=== PATIENT | female | born 1940 | race Two or more races ===

== ENCOUNTER → 2018-03-12 | Outpatient (CLI) | payer MEDICARE, OTHER ==
--- NOTE | 2018-03-12 18:04 | CONS ---
Date/Time of Note Date/Time of Note DATE: 03/12/18 TIME: 17:54 Assessment/Plan Assessment/Plan Hospital Course This is a 77-year-old female with end-stage osteoarthritis of the left knee. She has failed conservative management with gait aids as well as injections. She does have history of diabetes. Per the patient daughter is well controlled. Patient had recent labs done at the PCPs office which may have contained a HgbA1c. If her HgbA1c <7.0 she would be a good surgical candidate for left total knee arthroplasty. My other concern is that she is only here for short period of time and goes back and forth between here and [place]. If the surgery was to be booked I would like to have her here for ideally 12 weeks before her returning to [facility]. The patient is to fax us her recent laboratory work. If they do not include HgbA1c one will be ordered for her. If her labs are good she will be booked for surgery and she will obtain preoperative and cardiac clearance. Consultation Date/Type/Reason Admit Date/Time Date of Consultation: Mar 12, 2018 Reason for Consultation Left knee pain Hx of Present Illness Is a 77-year-old female with a chief complaint of left knee pain. She lives [place] and part[place] 2 months ago she had a right total knee arthroplasty done in [place]. She has no issues and is doing well from that. The pain began years ago. The patients pain is in the medial and lateral aspect of the left knee. Pain is not radiating to the lower leg. The pain is rated as a 8/10. Patient denies complaints of numbness or tingling. The pain is exacerbated by climbing stairs and ambulation. The patient has had a steroid injection as well as PRP. These have not helped. The last injection was greater than 6 months ago. She uses a cane on a daily basis. Patient is on aspirin for previous heart surgery. The patient did have some increased swelling recently in the right lower extremity. Her primary care doctor [place] ordered a venous Doppler. Per the patient and daughter it was negative for DVT. Duration: Years Injury: No Walking tolerance: 1 block Limp: Yes Support: Cane and/or walker Swelling: Yes Crepitation: Yes Instability: No Stairs: 1 step at a time Physical Therapy: Not recently Injections: PRP injection approximately 6 months ago NSAIDs: No Prior surgery: No Back pain: No Hip pain: No Risk of AVN : No Patient denies fever, chills, shortness of breath, chest pain, nausea/vomiting, constipation, diarrhea, numbness, and tingling. Past Medical History Diabetescontrolled with oral medication coronary artery disease Hypertension Asthma Ovarian cancer Past Surgical History Open heart surgery Right total knee [id number] in [place]. Karen prosthesis Cataract surgery Hysterectomy Family History Significant Family History: no pertinent family hx Social History Alcohol Use: none Smoking Status: Never smoker Drug Use: none Exam/Review of Systems Vital Signs Vitals Weight: 175 pounds Height: 5 feet 4 inches BMI: 30.0 Temperature: 98.6 Heart Rate: 61 Blood Pressure: 124/60 Respiratory Rate: 12 Exam General: Alert, oriented x3. No Acute Distress. Heart: Regular rate and rhythm. Lungs: No respiratory distress. No accessory muscle use. Musculoskeletal: Left Knee This is a well developed female who is alert, oriented times three and in no apparent distress. Skin is intact over the left knee as well as the lower extremity with no abrasions, lacerations, or ulcerations. Observation of the patient's gait reveals an antalgic gait with Varus thrust. Frontal plane alignment is varus. There is pain on palpation of medial and lateral joint line. The patient demonstrates grinding anteriorly with ROM. Range of motion: 0 extension to approximately 130 degrees of flexion. Collateral ligament testing reveals no instability with varus or valgus stress at 0 and 30 degrees of flexion. Negative Betty's and negative posterior drawer. Neurovascularly intact with 5/5 EHL/tibialis anterior/gastroc. Sensation intact to light touch in a sural, saphenous, deep peroneal, superficial peroneal, medial and lateral plantar nerve distribution. Palpable, symmetric dorsalis pedis and posterior tibial pulses in both lower extremities. Hip examination normal. Imaging Imaging The patient received a standard set of films today that were personally reviewed. Imaging included a standing bilateral knee AP, PA flexion, merchant views and a dedicated lateral of the affected knee: There is varus alignment of the knee. There is complete loss of joint space in the medial compartment with moderate loss of joint space patellofemoral and lateral compartment(s). There is osteophyte formation. There is subchondral sclerosis. There are subchondral cysts. Degenerative changes are most severe in the medial compartment(s) WILLIS MCKEON MD Mar 12, 2018 18:04
--- NOTE | 2018-03-13 07:15 | RADRPT ---
PROCEDURE: Bilateral knee series CLINICAL INDICATION: Pain TECHNIQUE: AP weightbearing, PA weightbearing, lateral weightbearing and sunrise views were obtaine d of the right left knees. COMPARISON: None FINDINGS: There is a total right knee prosthesis in place without dislocation or loosening. Severe degenerate j oint disease of the left knee worse involving the medial compartment. No acute fractures or dislocati ons. The bones are osteopenic without focal bony blastic or lytic lesions. No evidence of right or le ft knee joint effusions. IMPRESSION: 1. No acute fractures or dislocations. 2. Unremarkable right knee prosthesis. 3. Severe degenerate joint disease of the left knee. 4. No evidence of right or left knee joint effusions. RPTAT:AAJJ Physician Marii Date Time Electronically viewed and signed by Physician Marii on 03/13/2018 07:15 BM/
== END | disposition home or self-care (01) ==
LOC: HKI 14:44
PROVIDERS: ATTEND Orthopaedic Surgery Adult Reconstructive Orthopaedic Surgery
DX: M17.12 Unilateral primary osteoarthritis, left knee (principal); Z96.651 Presence of right artificial knee joint
CPT/HCPCS: 73564; G0463

== ENCOUNTER → 2018-04-09 | Outpatient (CLI) | payer MEDICARE, OTHER ==
--- NOTE | 2018-04-09 10:01 | PN ---
Date/Time of Note Date/Time of Note DATE: 04/09/18 TIME: 09:54 Assessment/Plan VTE Prophylaxis Pharmacological prophylaxis: other Assessment/Plan Assessment/Plan 77-year-old female with advanced osteoarthritis of her left knee. 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 She has failed conservative treatment and would like to proceed with left total knee replacem ent. Risks and benefits were discussed. Implant materials and surgical techniques were discussed. The patient will be scheduled for surgery as soon as possible Subjective 24 Hr Interval Summary Free Text/Dictation Julianna is a 77-year-old lady who is here for evaluation of left knee pain. The pain has been ongoing for a few years. The patient has tried medications, injections and physical therapy without relief. She had her right knee replaced last year and is recovering from that. Patient is interested in the left knee replacement as soon as possible. The left knee pain is interfering with her routine activities and with sleep. She is having to use a cane for support. There is cracking and popping of the left knee. No trauma is reported. There is no history of fever or chills. She is here for further management Additional Comments Past history is significant for hypertension, diabetes, coronary artery bypass, hyperlipidemia Medications include metoprolol, metformin, aspirin, losartan, atorvastatin, amlodipine, diclofenac, triamterene, isosorbide, Imdur, nitroglycerin as needed Allergies none Review of systems is negative for chest pain or shortness of breath, positive for left knee pain, deformity and stiffness Exam/Review of Systems Exam Vitals Vital signs are stable, blood pressure 149/72, temperature 98.4, pulse rate 69 and respiration 14 Exam Examination of the left knee shows a varus deformity of 10 degrees, range of motion from 10-105 with crepitus. There is no instability and no neurovascular deficit. The right knee has a healed incision of knee replacement. Mild swelling of the right side is noted. The calf is soft and nontender. X-rays of the knees were reviewed and show a right total knee replacement with an un-resurfaced patella. The left knee has advanced osteoarthritis with complete loss of medial joint space and osteophyte formation as well as varus deformity PATRICE FROST Apr 09, 2018 10:01
== END | disposition home or self-care (01) ==
LOC: HKI 09:20
PROVIDERS: ATTEND Orthopaedic Surgery
DX: M17.12 Unilateral primary osteoarthritis, left knee (principal); I10 Essential (primary) hypertension; E11.8 Type 2 diabetes mellitus with unspecified complications; E78.5 Hyperlipidemia, unspecified; Z95.1 Presence of aortocoronary bypass graft; Z79.82 Long term (current) use of aspirin; Z79.84 Long term (current) use of oral hypoglycemic drugs
CPT/HCPCS: G0463

== ENCOUNTER 2018-04-19 09:00 | Inpatient (IN) | payer MEDICARE, OTHER ==
[~2018-04-19] VITALS: Ht 154.9 cm; Wt 78.8 kg
[2018-08-06 18:41] VITALS: BMI 30.3
[2018-08-16] VITALS (26 sets, daily range): BP systolic 120–174; BP diastolic 57–80; PULSE 57–75; RESP 16–24; Ht 154.9 cm; Wt 78.8 kg
[2018-08-16] MEDS ORDERED: CEFAZOLIN 2 GM/50 ML (PMX) 50 ML (FOR WT < 120 KG) IVPB ONE (06:00)
[2018-08-16] MEDS ORDERED: ACETAMINOPHEN 500 MG TAB PO ONE (06:00)
[2018-08-16] MEDS ORDERED: DEXAMETHASONE 4 MG/ML 1 ML INJ IV ONE (06:00)
[2018-08-16] MEDS ORDERED: TRANEXAMIC ACID 1GM/100ML(PMX) 100 ML AT INCISION X1 IVPB ONE (06:00)
[2018-08-16] MEDS ORDERED: ACETAMINOPHEN 1000MG/100ML IV 100 ML IVPB ONE (06:30)
[2018-08-16] MEDS ORDERED: POLYMYXIN B 500000 UNIT INJ ONE (06:50)
[2018-08-16] MEDS ORDERED: BACITRACIN 50000 UNITS INJ ONE (06:51)
[2018-08-16] MEDS: LACTATED RINGER'S 1,000 ML IV SCH ×3 (07:13→22:07)
--- NOTE | 2018-08-16 07:16 | PREAC ---
Date/Time of Note Date/Time of Note DATE: 08/16/18 TIME: 07:13 Anesthesia Eval and Record Evaluation Time Pre-Procedure Interview DATE: 08/16/18 TIME: 07:13 Age 78 Sex female NPO: 8 hrs Preoperative diagnosis left knee osteoarthritis Planned procedure left total knee replacement Past Medical History Past Medical History: Includes Cardio: HTN, Dyslipidemia, CAD, CABG Endo: Diabetes Musculoskeletal: Osteoarthritis Surgery & Anesthesia Issues No known issue Meds Anticoagulation: No Beta David within 24 hr: No Reason Beta David not given: Pt. not on B-David Current Medications Lactated Ringer's 1,000 ml @ 25 mls/hr Q24H IV ; Start 08/16/18 at 06:00 Tranexamic Acid 100 ml @ 330 mls/hr INTRAOP ONCE IVPB ; Start 08/16/18 at 10: 00; Stop 08/16/18 at 10:18 Meds reviewed: Yes Allergies Coded Allergies: No Known Allergy (Unverified , 08/06/18) Allergies Reviewed: Yes Labs/Studies Labs Reviewed: Reviewed by anesthesiologist test: N/A Pre-procedure Exam Airway: Adequate mouth opening, Adequate thyromental dist Mallampati: Mallampati II Teeth: Normal Lung: Normal Heart: Normal ASA Physical Status ASA physical status: 3 Emergency: None Planned Anesthetic General/MAC: Mask (vs. ), LMA Neuraxial: Spinal Nerve block: Femoral (left adductor) Planned Pain Management Single shot nerve block, Parenteral pain med Pre-operative Attestations Prior to commencing anesthesia and surgery, the patient was re-evaluated, there was verification of: *The patient's identity *The results of appropriate recent lab work and preoperative vital signs *The above evaluation not changing prior to induction *Anesthetic plan, risk benefits, alternative and complications discussed with patient/family; questions answered; patient/family understands, accepts and wishes to proceed. Costume Cutter used KRISTIE DAWKINS MD Aug 16, 2018 07:16
--- NOTE | 2018-08-16 07:33 | HPN ---
Date/Time of Note Date/Time of Note DATE: 08/16/18 TIME: 07:33 Interval H&P Admission Note Pt. seen H&P reviewed: No system changes PATRICE FROST Aug 16, 2018 07:33
[2018-08-16] MEDS ORDERED: MIDAZOLAM 1 MG/ML 2 ML INJ ONE (07:44)
[2018-08-16] MEDS ORDERED: FENTAnyl 50 MCG/ML VIAL ONE (07:44)
[2018-08-16] MEDS ORDERED: LOSA50TA14 PO (07:46)
[2018-08-16] MEDS ORDERED: METO-319 PO (07:46)
[2018-08-16] MEDS ORDERED: METF500T24 PO (07:46)
[2018-08-16] MEDS ORDERED: ATOR40TA68 PO (07:46)
[2018-08-16] MEDS ORDERED: AMLO-145 PO (07:46)
[2018-08-16] MEDS ORDERED: CEFAZOLIN 1 GM INJ ONE (08:57)
[2018-08-16] MEDS ORDERED: TRANEXAMIC ACID 1GM/100ML(PMX) 100 ML ONE ×2 (08:57→09:08)
[2018-08-16] MEDS ORDERED: FENTAnyl 50 MCG/ML VIAL IV PRN (09:00)
[2018-08-16] MEDS ORDERED: hydrALAzine 20 MG INJ IV PRN (09:00)
[2018-08-16] MEDS ORDERED: PROCHLORPERAZINE 10 MG INJ IV PRN (09:00)
[2018-08-16] MEDS ORDERED: MEPERIDINE 25 MG INJ IV PRN (09:00)
[2018-08-16] MEDS ORDERED: DIPHENHYDRAMINE 50 MG INJ IV PRN (09:00)
[2018-08-16] MEDS ORDERED: ONDANSETRON 4 MG INJ IV PRN (09:00)
[2018-08-16] MEDS ORDERED: EPHEDrine 25 MG/5 ML SYG IV PRN (09:00)
[2018-08-16] MEDS ORDERED: HYDROmorphONE 1 MG/5 ML IV SYRINGE IV PRN ×2 (09:00)
[2018-08-16] MEDS ORDERED: ROPIVACAINE 0.2% 20 ML VIAL ONE (09:02)
[2018-08-16] MEDS ORDERED: ONDANSETRON 4 MG INJ ONE (09:02)
[2018-08-16] MEDS ORDERED: FAMOTIDINE 20 MG INJ ONE (09:02)
[2018-08-16] MEDS ORDERED: PROPOFOL 100 ML ONE (09:02)
--- NOTE | 2018-08-16 09:34 | SIPON ---
Date/Time of Note Date/Time of Note DATE: 08/16/18 TIME: 09:33 Operative Report Preoperative Diagnosis Left knee osteoarthritis Postoperative Diagnosis Same Operation/Procedure Performed Left total knee replacement Surgeon see signature line psychiatric assistant MOJGAN Back Anesthesia: spinal Estimated blood loss: 150 - 200 ml's Transfusion Required none Specimen Bone Grafts/Implants Attune knee, size 5 femur, size 5 tibia, 10 mm polyethylene and 35 patella Complications none PATRICE FROST Aug 16, 2018 09:34
--- NOTE | 2018-08-16 09:37 | OPR ---
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 The left knee was examined and found to have a varus deformity of 15 degrees. The knee was prepped and draped in usual manner. An anterior incision was made. A mid vastus approach was made in the patella displaced laterally without everting it. The knee had advanced osteoarthritis with severe loss of cartilage as well as large osteophytes. Using intramedullary alignment, the distal femoral cut was made in 5 degrees of valgus. The femur was measured to be a size 5 from the Picket knee system. The 5 cutting block was placed. Anterior posterior and chamfer cuts were made. A notch was cut in the distal femur to accommodate the posterior stabilized femoral component. The PCL was sacrificed, remnants of the menisci were removed. The tibia was cut using external alignment and the patella cut using a freehand technique. Trials were inserted including a 5 fem ur, 5 tibia, 35 patella and 10 mm of polyethylene. This resulted in a stable knee from 0 to 120 degrees with good balance and tracking. X-rays confirm proper alignment of the implants. Once satisfactory alignment was confirmed, final components were cemented in place. Excess cement was removed. The knee was injected with pain cocktail. Hemostasis was confirmed with aqua Mantis. The knee was closed in layers using #1 strata fix for deep fascia 2-0 Vicryl for subcutaneous tissue and 3-0 Monocryl for the skin. Patient was transferred to the recovery room in stable condition PATRICE FROST Aug 16, 2018 09:37
[2018-08-16] MEDS ORDERED: NALOXONE (0.4 MG/ML) INJ IV PRN (10:00)
[2018-08-16] MEDS ORDERED: MAGNESIUM HYDROXIDE 30ML CUP PO PRN (10:00)
[2018-08-16] MEDS ORDERED: NACL 0.9% 3 ML SYG IV SCH (10:00)
[2018-08-16] MEDS ORDERED: oxyCODONE 5 MG TAB PO PRN (10:00)
[2018-08-16] MEDS ORDERED: TRANEXAMIC ACID 1GM/100ML(PMX) 100 ML AT CLOSURE X1 IVPB ONE (10:00)
--- NOTE | 2018-08-16 10:17 | PAC ---
Date/Time of Note Date/Time of Note DATE: 08/16/18 TIME: 10:16 Post-Anesthesia Notes Post-Anesthesia Note Last documented vital signs Vital Signs Date Temp Pulse Resp B/P (MAP) Pulse Ox O2 O2 Flow FiO2 Time Delivery Rate 08/16/18 66 19 138/66 95 Mask 6.0 10:15 (90) 08/16/18 97.9 10:14 Activity: WNL Respiratory function: WNL Cardiovascular function: WNL Mental status: Baseline Pain reasonably controlled: Yes Hydration appropriate: Yes Nausea/Vomiting absent: Yes Comments BP: 140/58 HR: 69 RR: 15 T: 97.9 SaO2: 100% KRISTIE DAWKINS MD Aug 16, 2018 10:17
[2018-08-16] MEDS: CEFAZOLIN 2 GM/50 ML (PMX) 50 ML IVPB SCH ×2 (10:36→17:47)
[2018-08-16] MEDS: KETOROLAC 15 MG INJ IV PRN ×3 (12:11→13:16)
--- NOTE | 2018-08-16 12:32 | HP ---
Date/Time of Note Date/Time of Note DATE: 08/16/18 TIME: 12:20 Assessment/Plan VTE Prophylaxis SCD applied (from Nsg): Yes Pharmacological prophylaxis: other Lines/Catheters IV Catheter Type (from Nrsg): Saline Lock Assessment/Plan Assessment/Plan -Left knee osteoarthritis, status post left total knee replacement by Dr. Hernandez. Continue postoperative antibiotic. Continue oral oxycodone and Toradol as needed for pain and Zofran as needed for nausea. Continue aspirin twice daily. Follow-up orthopedic surgery recommendations. Physical therapy. -Coronary artery disease, status post CABG -Hypertension, continue metoprolol Norvasc and Cozaar. -Hyperlipidemia, continue atorvastatin -Diabetes, resume metformin continue NovoLog per mild algorithm sliding scale. Patient condition and plan of care was discussed with patient and patient daughter at the bedside, all questions answered. Further recommendations based on clinical course. Plan of care discussed with Dr. Thakur. Results 24hrs Laboratory Tests Test 08/16/18 07:10 08/16/18 10:05 Bedside Glucose 110 150 HPI/ROS Admit Date/Time Admit Date/Time Aug 16, 2018 at 05:40 Hx of Present Illness The patient is 78-year-old female with history of coronary artery disease status post CABG, hypertension, hyperlipidemia, diabetes and advanced osteoarthritis of the left knee. Patient follows with Dr. Ryder as an outpatient from cardiology standpoint and was cleared for left total knee replacement. Patient was brought to the hospital today and underwent left total knee replacement by Dr. Hernandez. Patient is complains of the left knee pain, patient denies any chest pain, denies shortness of breath, denies any nausea, vomiting, diarrhea. ROS 12 point review of system is negative except for what mentioned in HPI PMH/Family/Social Past Medical History Medical History: coronary artery disease, diabetes, high cholesterol, hypertension, other (Osteoarthritis) Medications Current Medications Lactated Ringer's 1,000 ml @ 25 mls/hr Q24H IV Last administered on 08/16/18at 07:13; Admin Dose 25 MLS/HR; Start 08/16/18 at 06:00 Hydromorphone HCl (Dilaudid) 0.2 mg PACU PRN IV PAIN LEVEL 1-5; Start 08/16/18 at 09:00; Stop 08/16/18 at 14:30 Hydromorphone HCl (Dilaudid) 0.4 mg PACU PRN IV PAIN LEVEL 6-10; Start 08/16/18 at 09:00; Stop 08/16/18 at 14:30 Fentanyl (Sublimaze) 25 mcg PACU ORDER PRN IV MILD PAIN 1-3; Start 08/16/18 at 09:00; Stop 08/16/18 at 14:30 Ondansetron HCl (Zofran Inj) 4 mg PACU ORDER PRN IV NAUSEA/VOMITING; Start 08/16/18 at 09:00; Stop 08/16/18 at 14:30 Prochlorperazine (Compazine Inj) 5 mg PACU ORDER PRN IV NAUSEA/VOMITING; Start 08/16/18 at 09:00; Stop 08/16/18 at 14:30 Hydralazine HCl (Apresoline) 5 mg PACU ORDER PRN IV HIGH BLOOD PRESSURE; Start 08/16/18 at 09:00; Stop 08/16/18 at 14:30 Ephedrine Sulfate 5 mg PACU ORDER PRN IV BLOOD PRESSURE SUPPORT; Start 08/16/18 at 09:00; Stop 08/16/18 at 14:30 Meperidine HCl (Demerol) 25 mg PACU ORDER PRN IV .RIGORS; Start 08/16/18 at 09:00; Stop 08/16/18 at 14:30 Diphenhydramine HCl (Benadryl) 12.5 mg PACU ORDER PRN IV .PRURITUS; Start 08/16/18 at 09:00; Stop 08/16/18 at 14:30 Lactated Ringer's 1,000 ml @ 80 mls/hr [id number] IV ; Start 08/16/18 at 09:37 IV Flush (NS 3 ml) 3 ml PER PROTOCOL IV ; Start 08/16/18 at 10:00 Oxycodone HCl (Roxicodone) 10 mg Q4H PRN PO .PAIN; Start 08/16/18 at 10:00 Oxycodone HCl (Roxicodone) 5 mg Q4H PRN PO .PAIN; Start 08/16/18 at 10:00 Ketorolac Tromethamine (Toradol) 15 mg Q6H PRN IV .PAIN Last administered on 08/16/18at 12:11; Admin Dose 15 MG; Start 08/16/18 at 10:00 Ondansetron HCl (Zofran Inj) 4 mg Q4H PRN IV NAUSEA/VOMITING; Start 08/17/18 at 10:00 Cefazolin Sodium/ Dextrose 50 ml @ 100 mls/hr Q8H IVPB Last administered on 08/16/18at 10:36; Admin Dose 100 MLS/HR; Start 08/16/18 at 10:00; Stop 08/17/18 at 02:29 Celecoxib (Celebrex) 100 mg BID PO ; Start 08/17/18 at 09:00 Gabapentin (Neurontin) 100 mg TID PO ; Start 08/16/18 at 13:00 Pantoprazole (Protonix Tab) 40 mg DAILY@06 PO ; Start 08/18/18 at 06:00 Docusate Sodium (Colace) 200 mg BID PO ; Start 08/17/18 at 09:00; Stop 08/20/18 at 08:59 Magnesium Hydroxide (Milk Of Mag) 30 ml HS PRN PO .CONSTIPATION; Start 08/16/18 at 10:00 Naloxone HCl (Narcan) 0.2 mg Q2M PRN IV .RESP RATE; Start 08/16/18 at 10:00 Aspirin (Halfprin) 81 mg BID PO ; Start 08/17/18 at 09:00 Coded Allergies: No Known Allergy (Unverified , 08/16/18) Past Surgical History Past Surgical Hx: other (Status post CABG 2007, status post hysterectomy and bilateral oophorectomy secondary to cancer, status post right knee replacement, status post cataract surgery) Family History Significant Family History: diabetes (In patient's mother who is now) Social History Alcohol Use: none Smoking Status: Never smoker Drug Use: none Exam/Review of Systems Vital Signs Vitals Vital Signs Date Temp Pulse Resp B/P (MAP) Pulse Ox O2 O2 Flow FiO2 Time Delivery Rate 08/16/18 98.0 72 18 138/66 99 Nasal 2.0 11:40 (90) Cannula Exam Constitutional: alert, oriented Head: normocephalic Neck: supple Respiratory: clear to auscultation Cardiovascular: nl pulses Gastrointestinal: soft, non-tender Musculoskeletal: nl extremities to inspection Extremities: normal pulses, other (Status post left total knee replacement) Neurological: nl mental status Skin: nl ERICKA Melgoza Aug 16, 2018 12:31
[2018-08-16] MEDS ORDERED: GLUCAGON 1 MG INJ IM PRN (13:00)
[2018-08-16] MEDS ORDERED: DEXTROSE 50% 50 ML SYRINGE IV PRN ×2 (13:00)
[2018-08-16] MEDS ORDERED: GLUCOSE GEL 15 GRAM TUBE BUCCAL PRN (13:00)
[2018-08-16] MEDS ORDERED: GLUCOSE GEL 15 GRAM TUBE PO PRN ×2 (13:00)
[2018-08-16] MEDS: GABAPENTIN 100 MG CAP PO SCH ×2 (13:20→20:43)
[2018-08-16] MEDS: metFORMIN 500 MG TAB PO SCH (17:50)
[2018-08-16] MEDS: INSULIN ASPART [NOVOLOG] 3 ML PEN SC SCH ×2 (17:52→20:46)
[2018-08-16] MEDS: ACCU-CHEK XX SCH ×2 (17:54→20:51)
[2018-08-16] MEDS: LOSARTAN 50 MG TAB PO SCH (20:44)
[2018-08-16] MEDS: METOPROLOL (XL) 50 MG TAB PO SCH (20:44)
[2018-08-16] MEDS: ATORVASTATIN 40 MG TAB PO SCH (20:44)
[2018-08-16] MEDS: AMLODIPINE 5 MG TAB PO SCH (20:46)
[2018-08-16] MEDS: oxyCODONE 5 MG TAB PO PRN (21:55)
[2018-08-16] MEDS ORDERED: ZOLPIDEM 5 MG TAB PO PRN (22:00)
[2018-08-17 01:02] VITALS: BP 122/58; PULSE 64; RESP 18
[2018-08-17] MEDS: CEFAZOLIN 2 GM/50 ML (PMX) 50 ML IVPB SCH (01:49)
[2018-08-17] MEDS: LACTATED RINGER'S 1,000 ML IV SCH ×3 (05:26→23:07)
[2018-08-17] MEDS: ACCU-CHEK XX SCH ×4 (07:20→21:00)
[2018-08-17] MEDS: INSULIN ASPART [NOVOLOG] 3 ML PEN SC SCH ×4 (07:50→21:00)
[2018-08-17 08:01] VITALS: BP 151/60; PULSE 62; RESP 19
[2018-08-17] MEDS: ASPIRIN (EC) 81 MG TAB PO SCH ×2 (08:18→21:37)
[2018-08-17] MEDS: DOCUSATE SODIUM 100 MG CAP PO SCH ×2 (08:19→21:37)
[2018-08-17] MEDS: metFORMIN 500 MG TAB PO SCH ×2 (08:19→17:44)
[2018-08-17] MEDS: CELECOXIB 100 MG CAP PO SCH ×2 (08:19→21:37)
[2018-08-17] MEDS: GABAPENTIN 100 MG CAP PO SCH ×3 (08:19→21:37)
[2018-08-17] MEDS: oxyCODONE 5 MG TAB PO PRN (08:19)
[2018-08-17] MEDS: AMLODIPINE 5 MG TAB PO SCH ×2 (08:20→21:38)
[2018-08-17] MEDS: LOSARTAN 50 MG TAB PO SCH ×2 (08:20→21:37)
[2018-08-17] MEDS: METOPROLOL (XL) 50 MG TAB PO SCH ×2 (08:21→21:41)
--- NOTE | 2018-08-17 08:47 | PN ---
Date/Time of Note Date/Time of Note DATE: 08/17/18 TIME: 08:46 Assessment/Plan VTE Prophylaxis Risk score (from Nsg)>0 risk: 14 SCD applied (from Nsg): Yes Lines/Catheters IV Catheter Type (from Nrsg): Peripheral IV Urinary Cath still in place: No Assessment/Plan Assessment/Plan -Left knee osteoarthritis, status post left total knee replacement by Dr. Hernandez. Continue postoperative antibiotic. Continue oral oxycodone and Toradol as needed for pain and Zofran as needed for nausea. Continue aspirin twice daily. Follow-up orthopedic surgery recommendations. Physical therapy. -Coronary artery disease, status post CABG -Hypertension, continue metoprolol Norvasc and Cozaar. -Hyperlipidemia, continue atorvastatin -Diabetes, resume metformin continue NovoLog per mild algorithm sliding scale. Patient condition and plan of care was discussed with patient and patient daughter at the bedside, all questions answered. Further recommendations based on clinical course. Plan of care discussed with Dr. Thakur. Result Diagram: 08/17/18 0514 08/17/18 0514 Results 24hrs Laboratory Tests Test 08/16/18 10:05 08/16/18 14:01 08/16/18 17:35 08/16/18 20:42 Bedside Glucose 150 155 153 154 Test 08/17/18 05:14 08/17/18 08:13 08/17/18 08:17 White Blood Count 10.3 Red Blood Count 3.64 L Hemoglobin 9.9 L Hematocrit 30.2 L Mean Corpuscular 83.0 Volume Mean Corpuscular 27.2 L Hemoglobin Mean Corpuscular 32.8 Hemoglobin Concent Red Cell 14.0 Distribution Width Platelet Count 234 Mean Platelet 10.5 H Volume Immature 0.400 Granulocytes % Neutrophils % 71.4 Lymphocytes % 18.2 Monocytes % 8.8 Eosinophils % 0.6 Basophils % 0.6 Nucleated Red 0.0 Blood Cells % Immature 0.040 H Granulocytes # Neutrophils # 7.4 Lymphocytes # 1.9 Monocytes # 0.9 Eosinophils # 0.1 Basophils # 0.1 Nucleated Red 0.0 Blood Cells # Sodium Level 141 Potassium Level 4.5 Chloride Level 103 Carbon Dioxide 30 Level Anion Gap 8 Blood Urea 24 H Nitrogen Creatinine 1.12 H Est Glomerular Filtrat Rate mL/min Glucose Level 110 Calcium Level 9.1 Lab Scanned Report REFERENCE LAB Bedside Glucose 96 Exam/Review of Systems Exam Vitals Vital Signs Date Temp Pulse Resp B/P (MAP) Pulse Ox O2 O2 Flow FiO2 Time Delivery Rate 08/17/18 98.4 62 19 151/60 94 08:01 (90) 08/16/18 Room Air 16:00 08/16/18 2.0 11:40 Intake and Output 08/16/18 08/16/18 08/17/18 1515:00 23:00 07:00 IntakeIntake Total 2250 ml 320 ml 290 ml OutputOutput Total 50 ml 700 ml BalanceBalance 2200 ml -380 ml 290 ml Results Results 24hrs Laboratory Tests Test 08/16/18 10:05 08/16/18 14:01 08/16/18 17:35 08/16/18 20:42 Bedside Glucose 150 155 153 154 Test 08/17/18 05:14 08/17/18 08:13 08/17/18 08:17 White Blood Count 10.3 Red Blood Count 3.64 L Hemoglobin 9.9 L Hematocrit 30.2 L Mean Corpuscular 83.0 Volume Mean Corpuscular 27.2 L Hemoglobin Mean Corpuscular 32.8 Hemoglobin Concent Red Cell 14.0 Distribution Width Platelet Count 234 Mean Platelet 10.5 H Volume Immature 0.400 Granulocytes % Neutrophils % 71.4 Lymphocytes % 18.2 Monocytes % 8.8 Eosinophils % 0.6 Basophils % 0.6 Nucleated Red 0.0 Blood Cells % Immature 0.040 H Granulocytes # Neutrophils # 7.4 Lymphocytes # 1.9 Monocytes # 0.9 Eosinophils # 0.1 Basophils # 0.1 Nucleated Red 0.0 Blood Cells # Sodium Level 141 Potassium Level 4.5 Chloride Level 103 Carbon Dioxide 30 Level Anion Gap 8 Blood Urea 24 H Nitrogen Creatinine 1.12 H Est Glomerular Filtrat Rate mL/min Glucose Level 110 Calcium Level 9.1 Lab Scanned Report REFERENCE LAB Bedside Glucose 96 Medications Medication Current Medications Lactated Ringer's 1,000 ml @ 25 mls/hr Q24H IV Last administered on 08/16/18at 07:13; Admin Dose 25 MLS/HR; Start 08/16/18 at 06:00 Lactated Ringer's 1,000 ml @ 80 mls/hr [id number] IV Last administered on 08/16/18at 13:10; Admin Dose 80 MLS/HR; Start 08/16/18 at 09:37 IV Flush (NS 3 ml) 3 ml PER PROTOCOL IV ; Start 08/16/18 at 10:00 Oxycodone HCl (Roxicodone) 10 mg Q4H PRN PO .PAIN Last administered on 08/17/18 08:19; Admin Dose 10 MG; Start 08/16/18 at 10:00 Oxycodone HCl (Roxicodone) 5 mg Q4H PRN PO .PAIN; Start 08/16/18 at 10:00 Ketorolac Tromethamine (Toradol) 15 mg Q6H PRN IV .PAIN Last administered on 08/16/18 13:16; Admin Dose 15 MG; Start 08/16/18 at 10:00 Ondansetron HCl (Zofran Inj) 4 mg Q4H PRN IV NAUSEA/VOMITING; Start 08/17/18 at 10:00 Celecoxib (Celebrex) 100 mg BID PO Last administered on 08/17/18 08:19; Admin Dose 100 MG; Start 08/17/18 at 09:00 Gabapentin (Neurontin) 100 mg TID PO Last administered on 08/17/18 08:19; Admin Dose 100 MG; Start 08/16/18 at 13:00 Pantoprazole (Protonix Tab) 40 mg DAILY@06 PO ; Start 08/18/18 at 06:00 Docusate Sodium (Colace) 200 mg BID PO Last administered on 08/17/18 08:19; Admin Dose 200 MG; Start 08/17/18 at 09:00; Stop 08/20/18 at 08:59 Magnesium Hydroxide (Milk Of Mag) 30 ml HS PRN PO .CONSTIPATION; Start 08/16/18 at 10:00 Naloxone HCl (Narcan) 0.2 mg Q2M PRN IV .RESP RATE; Start 08/16/18 at 10:00 Aspirin (Halfprin) 81 mg BID PO Last administered on 08/17/18 08:18; Admin Dose 81 MG; Start 08/17/18 at 09:00 Amlodipine Besylate (Norvasc) 5 mg BID PO Last administered on 08/17/18 08:20; Admin Dose 5 MG; Start 08/16/18 at 21:00 Atorvastatin Calcium (Lipitor) 40 mg QHS PO Last administered on 08/16/18at 20:44; Admin Dose 40 MG; Start 08/16/18 at 21:00 Losartan Potassium (Cozaar) 50 mg BID PO Last administered on 08/17/18 08:20; Admin Dose 50 MG; Start 08/16/18 at 21:00 Metformin HCl (Glucophage) 500 mg WITH BREAKFAST DINNE PO Last administered on 08/17/18at 08:19; Admin Dose 500 MG; Start 08/16/18 at 17:55 Metoprolol Succinate (Toprol Xl) 50 mg BID PO Last administered on 08/17/18 08:21; Admin Dose 50 MG; Start 08/16/18 at 21:00 Insulin Aspart (Novolog Insulin Pen) NOVOLOG *MILD* ALGORITHM WITH MEALS BEDTIME SC Last administered on 08/16/18at 17:52; Admin Dose 1 UNIT; Start 08/16/18 at 17:55 Miscellaneous Information 1 ea NOTE XX ; Start 08/16/18 at 13:00 Glucose (Glutose) 15 gm Q15M PRN PO DECREASED GLUCOSE; Start 08/16/18 at 13:00 Glucose (Glutose) 22.5 gm Q15M PRN PO DECREASED GLUCOSE; Start 08/16/18 at 13:00 Dextrose (D50w Syringe) 25 ml Q15M PRN IV DECREASED GLUCOSE; Start 08/16/18 at 13:00 Dextrose (D50w Syringe) 50 ml Q15M PRN IV DECREASED GLUCOSE; Start 08/16/18 at 13:00 Glucagon (Glucagen) 1 mg Q15M PRN IM DECREASED GLUCOSE; Start 08/16/18 at 13:00 Glucose (Glutose) 15 gm Q15M PRN BUCCAL DECREASED GLUCOSE; Start 08/16/18 at 13:00 Diagnostic Test (Pha) (Accu-Chek) 1 ea AC MEALS AND BEDTIME XX Last administered on 08/16/18at 17:54; Admin Dose 1 EA; Start 08/16/18 at 17:25 Zolpidem Tartrate (Ambien) 5 mg HS PRN PO INSOMNIA; Start 08/16/18 at 22:00 DANIELLA BLANCA Aug 17, 2018 08:47
[2018-08-17] MEDS ORDERED: ONDANSETRON 4 MG INJ IV PRN (10:00)
[2018-08-17] MEDS: KETOROLAC 15 MG INJ IV PRN ×2 (10:08→16:05)
[2018-08-17 15:40] VITALS: BP 147/67; PULSE 67; RESP 19
[2018-08-17 19:35] VITALS: BP 143/64; PULSE 70; RESP 18
[2018-08-17] MEDS: ATORVASTATIN 40 MG TAB PO SCH (21:37)
[2018-08-18 01:40] VITALS: BP 151/67; PULSE 66; RESP 18
[2018-08-18] MEDS: KETOROLAC 15 MG INJ IV PRN ×2 (02:46→10:16)
[2018-08-18] MEDS: LACTATED RINGER'S 1,000 ML IV SCH ×2 (06:00→09:10)
[2018-08-18] MEDS ORDERED: PANTOPRAZOLE (EC) 40 MG TAB PO SCH (06:00)
[2018-08-18] MEDS: INSULIN ASPART [NOVOLOG] 3 ML PEN SC SCH ×2 (07:50→13:43)
[2018-08-18 07:58] VITALS: BP 159/72; PULSE 62; RESP 18
[2018-08-18] MEDS: ACCU-CHEK XX SCH ×2 (08:31→13:43)
[2018-08-18] MEDS: metFORMIN 500 MG TAB PO SCH (09:05)
[2018-08-18] MEDS: DOCUSATE SODIUM 100 MG CAP PO SCH (09:05)
[2018-08-18] MEDS: CELECOXIB 100 MG CAP PO SCH (09:06)
[2018-08-18] MEDS: AMLODIPINE 5 MG TAB PO SCH (09:06)
[2018-08-18] MEDS: METOPROLOL (XL) 50 MG TAB PO SCH (09:07)
[2018-08-18] MEDS: LOSARTAN 50 MG TAB PO SCH (09:08)
[2018-08-18] MEDS: GABAPENTIN 100 MG CAP PO SCH ×2 (09:08→12:43)
[2018-08-18] MEDS: ASPIRIN (EC) 81 MG TAB PO SCH (09:08)
--- NOTE | 2018-08-18 10:47 | PN ---
Date/Time of Note Date/Time of Note DATE: 08/18/18 TIME: 10:47 Assessment/Plan VTE Prophylaxis Risk score (from Ns)>0 risk: 9 SCD applied (from Ns): Yes Pharmacological prophylaxis: LMWH Lines/Catheters IV Catheter Type (from Nrsg): Saline Lock Urinary Cath still in place: No Assessment/Plan Hospital Course -Left knee osteoarthritis, status post left total knee replacement by Dr. José nowak. Continue postoperative antibiotic. Continue oral oxycodone and Toradol as needed for pain and Zofran as needed for nausea. Continue aspirin twice daily. Follow-up orthopedic surgery recommendations. Physical therapy. -Coronary artery disease, status post CABG -Hypertension, continue metoprolol Norvasc and Cozaar. -Hyperlipidemia, continue atorvastatin -Diabetes, resume metformin continue NovoLog per mild algorithm sliding scale. Result Diagram: 08/18/18 0456 08/18/18 0456 Results 24hrs Laboratory Tests Test 08/17/18 12:48 08/17/18 17:40 08/17/18 21:44 08/18/18 04:56 Bedside Glucose 123 127 129 White Blood Count 7.6 # Red Blood Count 3.17 L Hemoglobin 8.7 L Hematocrit 26.3 L Mean Corpuscular 83.0 Volume Mean Corpuscular 27.4 L Hemoglobin Mean Corpuscular 33.1 Hemoglobin Concent Red Cell 14.1 Distribution Width Platelet Count 162 # Mean Platelet Volume 10.9 H Immature 0.300 Granulocytes % Neutrophils % 65.7 Lymphocytes % 19.5 Monocytes % 11.2 H Eosinophils % 2.6 Basophils % 0.7 Nucleated Red Blood 0.0 Cells % Immature 0.020 Granulocytes # Neutrophils # 5.0 Lymphocytes # 1.5 Monocytes # 0.9 Eosinophils # 0.2 Basophils # 0.1 Nucleated Red Blood 0.0 Cells # Sodium Level 140 Potassium Level 4.3 Chloride Level 103 Carbon Dioxide Level 31 Anion Gap 6 Blood Urea Nitrogen 22 H Creatinine 1.05 H Est Glomerular Filtrat Rate mL/min Glucose Level 103 Calcium Level 8.6 Test 08/18/18 08:28 Bedside Glucose 110 Subjective 24 Hr Interval Summary Free Text/Dictation Patient has pain in knee Exam/Review of Systems Exam Vitals Vital Signs Date Temp Pulse Resp B/P (MAP) Pulse Ox O2 O2 Flow FiO2 Time Delivery Rate 08/18/18 99.0 62 18 159/72 99 Room Air 07:58 (101) 08/16/18 2.0 11:40 Intake and Output 08/17/18 08/17/18 08/18/18 1515:00 23:00 07:00 IntakeIntake Total 500 ml 860 ml 540 ml BalanceBalance 500 ml 860 ml 540 ml Constitutional: well developed Head: normocephalic, atraumatic Neck: supple Respiratory: clear to auscultation Cardiovascular: regular rate and rhythm Gastrointestinal: soft, non-tender Extremities: normal pulses Results Results 24hrs Laboratory Tests Test 08/17/18 12:48 08/17/18 17:40 08/17/18 21:44 08/18/18 04:56 Bedside Glucose 123 127 129 White Blood Count 7.6 # Red Blood Count 3.17 L Hemoglobin 8.7 L Hematocrit 26.3 L Mean Corpuscular 83.0 Volume Mean Corpuscular 27.4 L Hemoglobin Mean Corpuscular 33.1 Hemoglobin Concent Red Cell 14.1 Distribution Width Platelet Count 162 # Mean Platelet Volume 10.9 H Immature 0.300 Granulocytes % Neutrophils % 65.7 Lymphocytes % 19.5 Monocytes % 11.2 H Eosinophils % 2.6 Basophils % 0.7 Nucleated Red Blood 0.0 Cells % Immature 0.020 Granulocytes # Neutrophils # 5.0 Lymphocytes # 1.5 Monocytes # 0.9 Eosinophils # 0.2 Basophils # 0.1 Nucleated Red Blood 0.0 Cells # Sodium Level 140 Potassium Level 4.3 Chloride Level 103 Carbon Dioxide Level 31 Anion Gap 6 Blood Urea Nitrogen 22 H Creatinine 1.05 H Est Glomerular Filtrat Rate mL/min Glucose Level 103 Calcium Level 8.6 Test 08/18/18 08:28 Bedside Glucose 110 Medications Medication Current Medications Lactated Ringer's 1,000 ml @ 25 mls/hr Q24H IV Last administered on 08/16/18at 07:13; Admin Dose 25 MLS/HR; Start 08/16/18 at 06:00 Lactated Ringer's 1,000 ml @ 80 mls/hr [id number] IV Last administered on 08/16/18at 13:10; Admin Dose 80 MLS/HR; Start 08/16/18 at 09:37 IV Flush (NS 3 ml) 3 ml PER PROTOCOL IV Last administered on 08/18/18at 02:47; Admin Dose 3 ML; Start 08/16/18 at 10:00 Oxycodone HCl (Roxicodone) 10 mg Q4H PRN PO .PAIN Last administered on 07/22 08:19; Admin Dose 10 MG; Start 08/16/18 at 10:00 Oxycodone HCl (Roxicodone) 5 mg Q4H PRN PO .PAIN; Start 08/16/18 at 10:00 Ketorolac Tromethamine (Toradol) 15 mg Q6H PRN IV .PAIN Last administered on 08/18/18 10:16; Admin Dose 15 MG; Start 08/16/18 at 10:00 Ondansetron HCl (Zofran Inj) 4 mg Q4H PRN IV NAUSEA/VOMITING; Start 08/17/18 at 10:00 Celecoxib (Celebrex) 100 mg BID PO Last administered on 08/18/18 09:06; Admin Dose 100 MG; Start 08/17/18 at 09:00 Gabapentin (Neurontin) 100 mg TID PO Last administered on 08/18/18 09:08; Admin Dose 100 MG; Start 08/16/18 at 13:00 Pantoprazole (Protonix Tab) 40 mg DAILY@06 PO ; Start 08/18/18 at 06:00 Docusate Sodium (Colace) 200 mg BID PO Last administered on 08/18/18 09:05; Admin Dose 200 MG; Start 08/17/18 at 09:00; Stop 08/20/18 at 08:59 Magnesium Hydroxide (Milk Of Mag) 30 ml HS PRN PO .CONSTIPATION Last administered on 08/18/18 10:15; Admin Dose 30 ML; Start 08/16/18 at 10:00 Naloxone HCl (Narcan) 0.2 mg Q2M PRN IV .RESP RATE; Start 08/16/18 at 10:00 Aspirin (Halfprin) 81 mg BID PO Last administered on 08/18/18 09:08; Admin Dose 81 MG; Start 08/17/18 at 09:00 Amlodipine Besylate (Norvasc) 5 mg BID PO Last administered on 08/18/18 09:06; Admin Dose 5 MG; Start 08/16/18 at 21:00 Atorvastatin Calcium (Lipitor) 40 mg QHS PO Last administered on 08/17/18 21:37; Admin Dose 40 MG; Start 08/16/18 at 21:00 Losartan Potassium (Cozaar) 50 mg BID PO Last administered on 08/18/18at 09:08; Admin Dose 50 MG; Start 08/16/18 at 21:00 Metformin HCl (Glucophage) 500 mg WITH BREAKFAST DINNE PO Last administered on 08/18/18 09:05; Admin Dose 500 MG; Start 08/16/18 at 17:55 Metoprolol Succinate (Toprol Xl) 50 mg BID PO Last administered on 08/18/18 09:07; Admin Dose 50 MG; Start 08/16/18 at 21:00 Insulin Aspart (Novolog Insulin Pen) NOVOLOG *MILD* ALGORITHM WITH MEALS BEDTIME SC Last administered on 08/16/18at 17:52; Admin Dose 1 UNIT; Start 08/16/18 at 17:55 Miscellaneous Information 1 ea NOTE XX ; Start 08/16/18 at 13:00 Glucose (Glutose) 15 gm Q15M PRN PO DECREASED GLUCOSE; Start 08/16/18 at 13:00 Glucose (Glutose) 22.5 gm Q15M PRN PO DECREASED GLUCOSE; Start 08/16/18 at 13:00 Dextrose (D50w Syringe) 25 ml Q15M PRN IV DECREASED GLUCOSE; Start 08/16/18 at 13:00 Dextrose (D50w Syringe) 50 ml Q15M PRN IV DECREASED GLUCOSE; Start 08/16/18 at 13:00 Glucagon (Glucagen) 1 mg Q15M PRN IM DECREASED GLUCOSE; Start 08/16/18 at 13:00 Glucose (Glutose) 15 gm Q15M PRN BUCCAL DECREASED GLUCOSE; Start 08/16/18 at 13:00 Diagnostic Test (Pha) (Accu-Chek) 1 ea AC MEALS AND BEDTIME XX Last administered on 08/18/18at 08:31; Admin Dose 1 EA; Start 08/16/18 at 17:25 Zolpidem Tartrate (Ambien) 5 mg HS PRN PO INSOMNIA; Start 08/16/18 at 22:00 ROSENDO FIGUEROA Aug 18, 2018 10:47
--- NOTE | 2018-08-18 14:28 | PDOCDIS ---
Discharge Instructions DIAGNOSIS Discharge Diagnosis Left total knee replacement CONDITION [id number] Patient Condition: [id number] Good HOME CARE INSTRUCTIONS: [id number] Diet Instructions: [id number] Regular ACTIVITY: [id number] Activity Restrictions: [id number] Slowly Increase Activity Rest between Activity Avoid heavy lifting Do not Drive Do not operate Power Tool Avoid Heavy Housework [id number] Bathing Restrictions: [id number] Shower FOLLOW UP/APPOINTMENTS Follow-up Plan 2 weeks PATRICE FROST Aug 18, 2018 14:28
--- NOTE | 2018-08-18 14:30 | DS ---
Date/Time of Note Date/Time of Note DATE: 08/18/18 TIME: 14:30 Discharge Summary Admission/Discharge Info Admit Date/Time Aug 16, 2018 at 05:40 Discharge Date/Time August 18, 2018 Discharge Diagnosis Left total knee replacement Patient Condition: Good Hospital Course The patient underwent left total knee replacement on August 16, 2016. She pro gressed well and is being discharged home with instructions to continue physical and occupational therapy. She will follow-up in 2 weeks Home Meds Reported Medications Metoprolol Succinate* (Toprol XL*) 50 Mg Tab.er.24h, 50 MG PO BID, #30 TAB 08/16/18 Losartan Potassium* (Losartan Potassium*) 50 Mg Tablet, 50 MG PO BID, TAB 08/16/18 Amlodipine Besylate* (Amlodipine Besylate*) 5 Mg Tablet, 5 MG PO BID, #30 TAB 08/16/18 Atorvastatin* (Atorvastatin*) 40 Mg Tablet, 40 MG PO QHS, #30 TAB 08/16/18 Metformin Hcl* (Metformin Hcl*) 500 Mg Tablet, 500 MG PO WITH BREAKFAST DINNE, #30 TAB 08/16/18 Follow-up Plan 2 weeks Primary Care Provider Preet Quan MD Pending Labs Laboratory Tests Test 08/17/18 17:40 08/17/18 21:44 08/18/18 04:56 08/18/18 08:28 Bedside 127 129 110 Glucose mg/dL (70-220) mg/dL (70-220) mg/dL (70-220) White Blood 7.6 Count 10^3/ul (4.8-1 0.8) Red Blood 3.17 Count 10^6/ul (4.20- 5.40) Hemoglobin 8.7 g/dl (12.0-16. 0) Hematocrit 26.3 % (37.0-47.0) Mean 83.0 Corpuscular fl (82.0-101.0 Volume ) Mean 27.4 Corpuscular pg (29.0-33.0) Hemoglobin Mean 33.1 Corpuscular g/dl (32.0-37. Hemoglobin Conc 0) ent Red Cell 14.1 Distribution % (11.5-14.5) Width Platelet Count 162 10^3/UL (140-4 15) Mean Platelet 10.9 Volume fl (7.4-10.4) Immature 0.300 Granulocytes % % (0.001-0.429 ) Neutrophils % 65.7 % (39.0-77.0) Lymphocytes % 19.5 % (15.0-51.0) Monocytes % 11.2 % (0.0-11.0) Eosinophils % 2.6 % (0.0-7.0) Basophils % 0.7 % (0.0-2.0) Nucleated Red 0.0 Blood Cells % /100WBC (0.0-0 .0) Immature 0.020 Granulocytes # 10^3/ul (0.0-0 .031) Neutrophils # 5.0 10^3/ul (1.6-7 .5) Lymphocytes # 1.5 10^3/ul (0.8-2 .9) Monocytes # 0.9 10^3/ul (0.3-0 .9) Eosinophils # 0.2 10^3/ul (0.0-0 .5) Basophils # 0.1 10^3/ul (0.0-0 .1) Nucleated Red 0.0 Blood Cells # 10^3/ul (0.0-0 .0) Sodium Level 140 mmol/L (135-14 4) Potassium 4.3 Level mmol/L (3.5-5. 1) Chloride Level 103 mmol/L (97-110 ) Carbon Dioxide 31 Level mmol/L (21-31) Anion Gap 6 (5-13) Blood Urea 22 Nitrogen mg/dl (7-20) Creatinine 1.05 mg/dl (0.44-1. 00) Est Glomerular mL/min (>60) Filtrat Rate mL/min Glucose Level 103 mg/dl (70-220) Calcium Level 8.6 mg/dl (8.4-10. 2) Test 08/18/18 13:40 Bedside 97 Glucose mg/dL (70-220) PATRICE FROST Aug 18, 2018 14:30
[2018-08-18] MEDS: oxyCODONE 5 MG TAB PO PRN (14:31)
== END 2018-08-18 15:50 | disposition home or self-care (01) | DRG 470 ==
LOC: REC 08-16 05:40 → MS1 08-16 11:50
PROVIDERS: ADMIT Orthopaedic Surgery; ATTEND Orthopaedic Surgery
PROC: 0SRD0J9 Replacement of Left Knee Joint with Synthetic Substitute, Cemented, Open Approach (ICD-10-PCS; principal; 2018-08-16 07:30)
DX: M17.12 Unilateral primary osteoarthritis, left knee (principal); M21.162 Varus deformity, not elsewhere classified, left knee; I10 Essential (primary) hypertension; E78.5 Hyperlipidemia, unspecified; E11.9 Type 2 diabetes mellitus without complications; I25.10 Atherosclerotic heart disease of native coronary artery without angina pectoris; Z96.651 Presence of right artificial knee joint; Z95.1 Presence of aortocoronary bypass graft; Z79.84 Long term (current) use of oral hypoglycemic drugs
CPT/HCPCS: 73560; 80048; 82962; 85025; 86850; 86900; 86901; 87081; 87086; 88304; 88311; 97110; 97116; 97162; 97167; 97530; C1776; J0131; J0171; J0690; J0735; J1100; J1815; J1885; J2250; J2405; J2795; J3010; J7120